=== PATIENT | female | born 1960 | race Caucasian/White ===

== ENCOUNTER 2021-03-24 08:52 | Emergency (ER) | payer BC ==
[2021-03-24 08:56] VITALS: TEMP 97.7
[2021-03-24] MEDS ORDERED: KETOROLAC 15 MG/ML 1 ML VIAL IM STA (09:17)
--- NOTE | 2021-03-24 09:20 | ED ---
General Adult HPI - General Chief complaint: Extremity Injury, Upper Stated complaint: Rt Shoulder Injury Time Seen by Provider: 03/24/21 08:58 Source: patient Mode of arrival: ambulatory Limitations: no limitations - History of Present Illness Initial comments: 89-year-old female presents to the emergency room for a chief complaint of right shoulder pain. Patient was showering. She does not recall exactly what she was doing but felt a crunch in her right shoulder and then sudden pain. Patient states it is painful to move the right shoulder. Patient denies this injury before. Patient has no other complaints at this time including shortness of breath, chest pain, abdominal pain, nausea or vomiting, headache, or visual changes. - Related Data Allergies Allergy/AdvReac Type Severity Reaction Status Date / Time No Known Allergies Allergy Verified 03/24/21 08:56 Review of Systems ROS Statement: Those systems with pertinent positive or pertinent negative responses have been documented in the HPI. ROS Other: All systems not noted in ROS Statement are negative. Past Medical History Additional Past Medical History / Comment(s): Hepatitis History of Any Multi-Drug Resistant Organisms: None Reported Past Surgical History: Tonsillectomy Past Psychological History: No Psychological Hx Reported Smoking Status: Never smoker Past Alcohol Use History: None Reported Past Drug Use History: None Reported General Exam Limitations: no limitations General appearance: alert, in no apparent distress Head exam: Present: atraumatic, normocephalic, normal inspection Eye exam: Present: normal appearance, PERRL, EOMI. Absent: scleral icterus, conjunctival injection, periorbital swelling ENT exam: Present: normal exam, mucous membranes moist Neck exam: Present: normal inspection, full ROM. Absent: tenderness, meningismus, lymphadenopathy Respiratory exam: Present: normal lung sounds bilaterally. Absent: respiratory distress, wheezes, rales, rhonchi, stridor Cardiovascular Exam: Present: regular rate, normal rhythm, normal heart sounds. Absent: systolic murmur, diastolic murmur, rubs, gallop, clicks GI/Abdominal exam: Present: soft, normal bowel sounds. Absent: distended, tenderness, guarding, rebound, rigid Extremities exam: Present: normal capillary refill (Capillary refill less than 2 seconds, radial pulse 2+ right upper extremity), other (Sensation intact right upper extremity). Absent: full ROM (Limited range of motion secondary to pain), tenderness, pedal edema, joint swelling, calf tenderness Course Vital Signs 03/24/21 03/24/21 08:53 09:10 Temperature 97.7 F Pulse Rate 83 91 Respiratory 20 18 Rate Blood Pressure 204/97 143/78 O2 Sat by Pulse 99 97 Oximetry Medical Decision Making - Medical Decision Making Vitals are stable. Patient is well-appearing. Patient felt shoulder pain while showering. No falls. Radial pulses 2+ in upper extremity. Patient does have difficulty moving the shoulder secondary to pain. X-ray of the right shoulder shows a mild AC joint osteoarthritis with some sclerosis at the greater tuberosi ty that can be seen of chronic rotator cuff tendinopathy. No acute osseous normality seen. Discussed increasing range of motion and Motrin and Tylenol for pain. She'll follow-up with orthopedics. She'll return for any worsening symptoms. Disposition Clinical Impression: Acute pain of right shoulder Disposition: HOME SELF-CARE Condition: Good Instructions (If sedation given, give patient instructions): Shoulder Pain (ED) Additional Instructions: Please take Motrin and Tylenol for pain and try to increase range of motion. Follow-up with orthopedic doctor. Return to the emergency room for any worsening symptoms. Is patient prescribed a controlled substance at d/c from ED?: No Referrals: Cl Silva MD [Primary Care Provider] - 1-2 days Byron Green DO [Doctor of Osteopathic Medicine] - 1-2 days Time of Disposition: 09:50
[2021-03-24 09:22] VITALS: PULSE 91; RESP 18
--- NOTE | 2021-03-24 09:42 | XR ---
EXAMINATION TYPE: XR shoulder complete RT, 3 views DATE OF EXAM: 03/24/2021 Comparison: None Clinical History: 60-year-old female pain Findings: Mild to moderate degenerative joint space narrowing and capsular hypertrophy at the acromioclavicular joint. Subacromial space is preserved. Mild sclerosis at the greater tuberosity. No acute fracture, subluxation, dislocation. Impression: 1. Mild AC joint OA. 2. Some sclerosis at the greater tuberosity can be seen with chronic rotator cuff tendinopathy. 3. No acute osseous abnormality seen.
[2021-03-24 09:57] VITALS: BP 155/96
[2021-03-24] MEDS ORDERED: ACET/COD 300 MG/30 MG STARTER PACK 6 TAB BTL PO STA (10:09)
== END 2021-03-24 10:15 | disposition home or self-care (01) ==
LOC: EC 08:52
DX: M25.511 Pain in right shoulder (principal)
CPT/HCPCS: 96372; 99283